=== PATIENT | female | born 1985 | race Caucasian/White ===

== ENCOUNTER 2016-07-20 09:25 | Emergency (ER) | payer MEDICAID ==
[~2016-07-20] VITALS: Ht 162.6 cm; Wt 56.7 kg
[2016-07-20] MEDS ORDERED: NKM (09:30)
[2016-07-20] MEDS ORDERED: IBUPROFEN600 MG ORAL (09:58)
[2016-07-20] MEDS ORDERED: AMOXICILLIN500 MG ORAL (09:58)
[2016-07-20] MEDS ORDERED: Dexamethasone 4mg/ml vial IM ONE (10:00)
[2016-07-20 10:26] VITALS: BP 142/83
[2016-07-20 10:27] VITALS: BP 121/85
--- NOTE | 2016-07-20 12:57 | Emergency Room Report ---
History of Present Illness General Chief Complaint: Sore Throat Source: Patient Present Illness HPI 31-year-old female presents ED complaining of sore throat x2 weeks. Notes intermittent chills. Denies fever. Pain is 8/10, throbbing, worse with swallowing. Nonradiating. Denies sick contacts or recent travel. Denies earache or cough. No other aggravating relieving factors. Denies any other associated symptoms Allergies: Coded Allergies: No Known Allergies (Unverified , 07/20/16) Patient History Past Medical History: none Past Surgical History: none Pertinent Family History: none Social History: Denies: alcohol use, drug use, smoking Last Menstrual Period: 06/2016 Now: No Immunizations: UTD Reviewed Nursing Documentation: PMH: Agreed, PSxH: Agreed Nursing Documentation-PMH Past Medical History: No Stated History Review of Systems All Other Systems: negative except mentioned in HPI Physical Exam Vital Signs Date Time Temp Pulse Resp B/P Pulse Ox O2 Delivery O2 Flow Rate FiO2 07/20/16 09:27 98.1 79 16 121/85 98 Room Air Sp02 EP Interpretation: reviewed, normal General Appearance: no apparent distress, alert, GCS 15, non-toxic Head: normocephalic Eyes: bilateral eye PERRL, bilateral eye normal inspection ENT: hearing grossly normal, no angioedema, normal voice, TMs + canals normal, pharyngeal erythema, tonsillar exudate Neck: normal inspection Respiratory: chest non-tender, lungs clear, normal breath sounds, speaking full sentences Cardiovascular #1: normal inspection Gastrointestinal: normal inspection Rectal: deferred Genitourinary: no CVA tenderness Musculoskeletal: normal inspection Neurologic: alert, oriented x3, responsive, motor strength/tone normal, sensory intact, speech normal Psychiatric: normal inspection Skin: normal inspection Lymphatic: normal inspection Medical Decision Making Diagnostic Impression: Primary Impression: Pharyngitis Qualified Codes: J02.9 - Acute pharyngitis, unspecified ER Course Hospital Course 31-year-old female presents to ED complaining of sore throat + chills Differential diagnoses include: URI, pharyngitis, otitis media Clinical course Patient placed on stretcher. After initial history, physical exam reveals a female in no acute distress. Bilateral TM unremarkable. There is pharyngeal erythema w/ tonsillar exudates. No lymphadenopathy. Clinical findings consistent with pharyngitis. Reassurance given Given Decadron Diagnosis - pharyngitis Stable and discharged home with prescriptions for Motrin, amoxicillin. Instructed to followup with PMD. return to ED if symptoms recur or worsen Last Vital Signs Date Time Temp Pulse Resp B/P Pulse Ox O2 Delivery O2 Flow Rate FiO2 07/20/16 10:27 98.1 16 121/85 98 Room Air 07/20/16 10:26 80 Status: improved Disposition: HOME, SELF-CARE Condition: Stable Scripts Amoxicillin* (AMOXIL*) 500 Mg Capsule 500 MG ORAL THREE TIMES A DAY, #21 CAP Prov: ANDREW AMAYA M.D. 07/20/16 Ibuprofen* (MOTRIN*) 600 Mg Tablet 600 MG ORAL Q8H Y for For Pain, #30 TAB 0 Refills Prov: ANDREW AMAYA M.D. 07/20/16 Referrals: NOT CHOSEN IVANA/,REFERRING (PCP) Patient Instructions: Pharyngitis, [id number] ANDREW AMAYA M.D. July 20, 2016 12:57
== END 2016-07-20 10:28 | disposition home or self-care (01) ==
LOC: EMR 10:01
DX: J02.9 Acute pharyngitis, unspecified (principal)
CPT/HCPCS: 96372; 99284; J1100